=== PATIENT | female | born 1955 | race Caucasian/White ===

== ENCOUNTER → 2016-10-13 | Outpatient (CLI) | payer MEDICARE, MEDICAID ==
[~2016-10-13] MED LIST: CEFT500T; DECADRON; ISOVUE-370 76% 100ML VIAL (Q9967) As Ordered ONE; OMEP20TA7; POTA20TA2; PREV30TA; PROM12SU; ZOFR8TAB
--- NOTE | 2016-10-13 15:15 | REP ---
REASON: Hemoptysis. COMPARISON: Multiple, the latest 09/09/2013. Contrast utilized 100 mL Isovue 370. There is esophageal gastric distention. This is likely secondary to what is most likely gastric pull through procedure and unchanged from the prior exam. The mediastinum and pulmonary antonia are unchanged from the prior exam. There is no evidence of a mass or adenopathy. There are no pleural or pericardial effusions. The imaged upper abdomen is within normal limits and essentially unchanged. The imaged osseous structures appears stable and intact . Evaluation of the lung marshall show stable asymmetric densities without evidence of a new abnormal nodule, mass, or opacity. IMPRESSION: Stable CT chest with findings as described above. Signed by Vaughn Hazel DO 10/13/2016 05:02 P
== END ==
LOC: M RAD 12:51
PROVIDERS: ATTEND Otolaryngology
DX: R91.8 Other nonspecific abnormal finding of lung field (principal)
CPT/HCPCS: 71260; Q9967

== ENCOUNTER 2016-10-25 09:54 | Outpatient (RCR) | payer MEDICARE, MEDICAID ==
[~2016-10-25 09:54] MED LIST changes: -ISOVUE-370 76% 100ML VIAL (Q9967) As Ordered ONE
== END 2016-11-08 ==
LOC: M ST 09:54
PROVIDERS: ATTEND Otolaryngology
DX: Z51.89 Encounter for other specified aftercare (principal); Z43.0 Encounter for attention to tracheostomy; Z44.8 Encounter for fitting and adjustment of other external prosthetic devices
CPT/HCPCS: 92597; G9174; G9175; G9176

== ENCOUNTER 2016-12-21 10:26 | Outpatient (RCR) | payer MEDICARE, MEDICAID | END 2017-01-08 | LOC: M ST 10:26 | PROVIDERS: ATTEND Otolaryngology | DX: Z51.89 Encounter for other specified aftercare (principal); Z43.0 Encounter for attention to tracheostomy; Z44.8 Encounter for fitting and adjustment of other external prosthetic devices; C32.0 Malignant neoplasm of glottis | CPT/HCPCS: 92597; G9174; G9175; G9176 ==

== ENCOUNTER → 2017-06-19 | Outpatient (REF) | payer MEDICARE, MEDICAID ==
[2017-06-19 19:19] LABS: AMORPHOUS SEDIMENT MODERATE (NEGATIVE); APPEARANCE, URINE CLOUDY (CLEAR); BACTERIA, URINE AUTO NEGATIVE (NEGATIVE); BILIRUBIN, URINE AUTO NEGATIVE (NEGATIVE); BLOOD, URINE BLOOD NEGATIVE (NEGATIVE); COLOR, URINE YELLOW (YELLOW); GLUCOSE, URINE (UA) AUTO NEGATIVE (NEGATIVE); KETONE, URINE AUTO NEGATIVE (NEGATIVE); LEUKOCYTE ESTERASE, URINE AUTO NEGATIVE (NEGATIVE); NITRITE, URINE AUTO NEGATIVE (NEGATIVE); PROTEIN, URINE AUTO NEGATIVE (NEGATIVE); RBC, URINE AUTO 2 /HPF (0-3); SPECIFIC GRAVITY URINE AUTO 1.017 (1.002-1.035); SQUAMOUS EPITHELIAL CELL UR AU 1 /HPF (0-6); UROBILINOGEN, URINE AUTO 0.2 mg/dL (0.0-2.0); WBC, URINE AUTO 1 /HPF (0-3)
== END ==
LOC: M SMT 17:40
DX: N20.0 Calculus of kidney (principal)
CPT/HCPCS: 81001

== ENCOUNTER 2017-07-25 11:20 | Day surgery (SDC) | payer MEDICARE, MEDICAID ==
[2017-07-25] MEDS: NS 1,000 ML IV (11:45)
[2017-07-25] MEDS ORDERED: PROPOFOL 200 MG/20 ML VIAL As Ordered ×3 (13:14→13:15)
[2017-07-25] MEDS ORDERED: LIDOCAINE 2% INJ 100 MG/5 ML SDV (FOR ANES.) As Ordered (13:14)
== END 2017-07-25 14:12 | disposition home or self-care (01) ==
LOC: M OPP 11:20
DX: R10.31 Right lower quadrant pain (principal); C18.9 Malignant neoplasm of colon, unspecified; K57.30 Diverticulosis of large intestine without perforation or abscess without bleeding; R12 Heartburn; I10 Essential (primary) hypertension; R01.1 Cardiac murmur, unspecified; Z85.01 Personal history of malignant neoplasm of esophagus; Z85.43 Personal history of malignant neoplasm of ovary; Z85.828 Personal history of other malignant neoplasm of skin; Z92.21 Personal history of antineoplastic chemotherapy; Z92.3 Personal history of irradiation; K58.9 Irritable bowel syndrome, unspecified; K21.9 Gastro-esophageal reflux disease without esophagitis; Z87.442 Personal history of urinary calculi; F17.210 Nicotine dependence, cigarettes, uncomplicated; Z88.0 Allergy status to penicillin; Z88.2 Allergy status to sulfonamides; Z88.1 Allergy status to other antibiotic agents; Z88.8 Allergy status to other drugs, medicaments and biological substances; Z79.899 Other long term (current) drug therapy; Z79.82 Long term (current) use of aspirin; Z80.0 Family history of malignant neoplasm of digestive organs; Z80.3 Family history of malignant neoplasm of breast; Z80.41 Family history of malignant neoplasm of ovary
CPT/HCPCS: 45380

== ENCOUNTER 2017-08-20 13:14 | Inpatient (IN) | payer MEDICARE, MEDICAID ==
[2017-08-20] MEDS ORDERED: LIDOCAINE 1% SDV 5 ML VIAL SQ (13:30)
[2017-08-20] MEDS: HEPARIN SOD (PORCINE) 5000 UNITS/ML VIAL SC ×2 (14:00→22:13)
[2017-08-20] MEDS: LR 1,000 ML IV ×2 (14:18→19:30)
[2017-08-20] MEDS ORDERED: ERTAPENEM 1 GM INJ (INVanz) (J1335) As Ordered (14:33)
[2017-08-20] MEDS ORDERED: LIDOCAINE 2% INJ 100 MG/5 ML SDV (FOR ANES.) As Ordered (14:42)
[2017-08-20] MEDS ORDERED: PROPOFOL 200 MG/20 ML VIAL As Ordered (14:42)
[2017-08-20] MEDS ORDERED: ROCURONIUM BROMIDE 50 MG/5 ML VIAL As Ordered (14:42)
[2017-08-20 14:43] LABS: BEDSIDE GLUCOSE 94 MG/DL (80-115)
[2017-08-20] MEDS ORDERED: fentaNYL 250 MCG/5 ML INJECTION (J3010) As Ordered (14:43)
[2017-08-20] MEDS ORDERED: MIDAZOLAM INJ 2 MG/2 ML VIAL (J2250) As Ordered (14:43)
[2017-08-20] MEDS ORDERED: ERTAPENEM SODIUM 1 GM in NS MINI-BAG PLUS 50 ML IV (15:00)
[2017-08-20] MEDS ORDERED: NORCO, ANEXSIA 5/325MG TABLET (HYDROcodone/ACETAMINOPHEN) PO (15:15)
[2017-08-20] MEDS ORDERED: MORPHINE 4 MG/ML 1ML VIAL (J2270) IV (15:15)
[2017-08-20] MEDS ORDERED: ONDANSETRON 4MG/2ML VIAL (J2405) IV (15:15)
[2017-08-20] MEDS ORDERED: ACETAMINOPHEN TAB 650MG DOSE (2X325MG) PO (15:15)
[2017-08-20] MEDS: ERTAPENEM SODIUM 1 GM in NS 50 ML IV (15:43)
[2017-08-20] MEDS ORDERED: ePHEDrine SULFATE 25 MG/5 ML(5MG/ML) SYRINGE As Ordered (16:11)
[2017-08-20] MEDS ORDERED: PHENYLephrine HCL 500 MCG/5 ML (100MCG/ML) SYRINGE (J2370) As Ordered (16:11)
[2017-08-20] MEDS ORDERED: NEOSTIGMINE 10 MG/10 ML VIAL (J2710) As Ordered (16:36)
[2017-08-20] MEDS ORDERED: KETOROLAC 60 MG/2 ML VIAL (J1885) As Ordered (16:36)
[2017-08-20] MEDS ORDERED: GLYCOPYRROLATE INJ 0.2 MG/ML 2 ML VIAL As Ordered (16:36)
[2017-08-20] MEDS ORDERED: ONDANSETRON 4MG/2ML VIAL (J2405) As Ordered (16:37)
[2017-08-20] MEDS ORDERED: HYDROmorphone HCL 2 MG/ML 1ML VIAL (J1170) As Ordered (18:00)
[2017-08-20] MEDS: BUPIVACAINE/EPIN 0.5% 30 ML VIAL As Ordered (18:51)
[2017-08-20] MEDS ORDERED: METOCLOPRAMIDE INJ 10MG/2ML VIAL (J2765) As Ordered (19:09)
[2017-08-20] MEDS: METOCLOPRAMIDE INJ 10MG/2ML VIAL (J2765) IV (19:15)
[2017-08-20] MEDS ORDERED: PERCOCET 5MG/325MG TAB PO (19:30)
[2017-08-20] MEDS ORDERED: HYDROmorphone HCL 1 MG/ML SYRINGE (J1170) IV (19:30)
[2017-08-20] MEDS ORDERED: fentaNYL 100 MCG/2 ML INJECTION (J3010) IV (19:30)
[2017-08-20] MEDS: ONDANSETRON 4MG/2ML VIAL (J2405) IV (19:34)
[2017-08-20] MEDS ORDERED: PROMETHAZINE INJ 25 MG/ML VIAL (J2550) As Ordered (19:41)
[2017-08-20] MEDS: PROMETHAZINE INJ 25 MG/ML VIAL (J2550) IV (19:50)
[2017-08-20] MEDS: MULTIVITAMINS/MINERALS THERAP 1 TAB PO (20:23)
[2017-08-20] MEDS: KCL 20MEQ IN D5/0.45NS 1000ML 1,000 ML IV (20:34)
[2017-08-20] MEDS: PANTOPRAZOLE 40MG INJ (PROTONIX) (C9113) IV (20:34)
[2017-08-20] MEDS: SENOKOT S TAB PO (21:56)
[2017-08-20] MEDS: CALCITRIOL 0.25 MCG CAP (S0169) PO (21:56)
[2017-08-21] MEDS: KCL 20MEQ IN D5/0.45NS 1000ML 1,000 ML IV ×3 (04:38→16:05)
[2017-08-21 05:36] LABS: HEMATOCRIT 31.1 % (36.0-47.0); HEMOGLOBIN 10.9 g/dl (12.0-16.0); MEAN CORPUSCULAR HEMOGLOBIN 32.6 pg (27.0-33.0); MEAN CORPUSCULAR VOLUME 93.1 fl (80.0-96.0); PLATELET COUNT, AUTOMATED 205 10^3/uL (150-450); RED BLOOD COUNT 3.34 10^6/uL (4.00-5.40); RED CELL DISTRIBUTION WIDTH 12.4 % (11.5-14.5); WHITE BLOOD COUNT 9.1 10^3/uL (4.0-10.0)
[2017-08-21 06:09] LABS: ALBUMIN 2.7 GM/DL (3.2-5.2); ALBUMIN/GLOBULIN RATIO 0.87 (1.00-1.93); ALKALINE PHOSPHATASE 61 U/L (45-117); ALT/SGPT 10 U/L (12-78); ANION GAP 8 MEQ/L (8-16); AST/SGOT 19 U/L (7-37); BILIRUBIN,TOTAL 1.4 MG/DL (0.2-1.0); BLOOD UREA NITROGEN 13 MG/DL (7-18); CALCIUM LEVEL 6.6 MG/DL (8.8-10.2); CARBON DIOXIDE LEVEL 28 MEQ/L (21-32); CHLORIDE LEVEL 100 MEQ/L (98-107); CREATININE FOR GFR 0.93 MG/DL (0.55-1.30); GLOMERULAR FILTRATION RATE > 60.0 (>45); GLUCOSE, FASTING 135 MG/DL (70-100); MAGNESIUM LEVEL 1.3 MG/DL (1.8-2.4); POTASSIUM SERUM 3.5 MEQ/L (3.5-5.1); SODIUM LEVEL 136 MEQ/L (136-145); TOTAL PROTEIN 5.8 GM/DL (6.4-8.2)
[2017-08-21] MEDS: LEVOTHYROXINE 75MCG TABLET (0.075MG) PO (06:29)
[2017-08-21] MEDS: HEPARIN SOD (PORCINE) 5000 UNITS/ML VIAL SC ×3 (06:33→21:26)
[2017-08-21] MEDS: MAG SULF 1GM/100ML (MAG RUN) 1 GM in APPROPRIATE DILUENT 1 EA IV ×4 (08:16→11:30)
[2017-08-21] MEDS: MULTIVITAMINS/MINERALS THERAP 1 TAB PO (08:17)
[2017-08-21] MEDS: KETOROLAC 30 MG/ML VIAL (J1885) IV (08:17)
[2017-08-21] MEDS: CALCITRIOL 0.25 MCG CAP (S0169) PO ×2 (08:17→21:26)
[2017-08-21] MEDS: PANTOPRAZOLE 40MG INJ (PROTONIX) (C9113) IV (08:17)
[2017-08-21] MEDS: SENOKOT S TAB PO ×2 (08:17→21:26)
[2017-08-21] MEDS: CALCIUM/VITAMIN D 250 MG TABLET PO ×2 (10:25→21:26)
[2017-08-21] MEDS: ERTAPENEM SODIUM 1 GM in NS MINI-BAG PLUS 50 ML IV (16:05)
[2017-08-22] MEDS: KCL 20MEQ IN D5/0.45NS 1000ML 1,000 ML IV ×2 (00:25→06:48)
[2017-08-22] MEDS: LEVOTHYROXINE 75MCG TABLET (0.075MG) PO (06:12)
[2017-08-22] MEDS: HEPARIN SOD (PORCINE) 5000 UNITS/ML VIAL SC ×3 (06:12→20:32)
[2017-08-22 06:32] LABS: HEMATOCRIT 31.4 % (36.0-47.0); HEMOGLOBIN 10.9 g/dl (12.0-16.0); MEAN CORPUSCULAR HEMOGLOBIN 32.7 pg (27.0-33.0); MEAN CORPUSCULAR HGB CONC 34.7 g/dl (32.0-36.5); MEAN CORPUSCULAR VOLUME 94.3 fl (80.0-96.0); PLATELET COUNT, AUTOMATED 202 10^3/uL (150-450); RED BLOOD COUNT 3.33 10^6/uL (4.00-5.40); RED CELL DISTRIBUTION WIDTH 12.9 % (11.5-14.5); WHITE BLOOD COUNT 6.9 10^3/uL (4.0-10.0)
[2017-08-22] MEDS: LISINOPRIL *2.5 MG* TAB PO (06:47)
[2017-08-22 07:01] LABS: ALBUMIN 2.9 GM/DL (3.2-5.2); ALBUMIN/GLOBULIN RATIO 0.85 (1.00-1.93); ALKALINE PHOSPHATASE 63 U/L (45-117); ALT/SGPT 8 U/L (12-78); ANION GAP 9 MEQ/L (8-16); AST/SGOT 16 U/L (7-37); BILIRUBIN,TOTAL 1.1 MG/DL (0.2-1.0); BLOOD UREA NITROGEN 8 MG/DL (7-18); CALCIUM LEVEL 6.6 MG/DL (8.8-10.2); CARBON DIOXIDE LEVEL 26 MEQ/L (21-32); CHLORIDE LEVEL 104 MEQ/L (98-107); CREATININE FOR GFR 0.81 MG/DL (0.55-1.30); GLOMERULAR FILTRATION RATE > 60.0 (>45); GLUCOSE, FASTING 122 MG/DL (70-100); MAGNESIUM LEVEL 1.9 MG/DL (1.8-2.4); POTASSIUM SERUM 3.3 MEQ/L (3.5-5.1); SODIUM LEVEL 139 MEQ/L (136-145); TOTAL PROTEIN 6.3 GM/DL (6.4-8.2)
[2017-08-22] MEDS: PANTOPRAZOLE 40MG INJ (PROTONIX) (C9113) IV (08:17)
[2017-08-22] MEDS: SENOKOT S TAB PO ×2 (08:17→20:31)
[2017-08-22] MEDS: POTASSIUM CHLORIDE 10 MEQ SR TABLET PO (08:17)
[2017-08-22] MEDS: MULTIVITAMINS/MINERALS THERAP 1 TAB PO (08:17)
[2017-08-22] MEDS: CALCIUM/VITAMIN D 250 MG TABLET PO ×2 (08:17→20:32)
[2017-08-22] MEDS: CALCITRIOL 0.25 MCG CAP (S0169) PO ×2 (08:17→20:31)
[2017-08-23] MEDS: LEVOTHYROXINE 75MCG TABLET (0.075MG) PO (06:07)
[2017-08-23] MEDS: HEPARIN SOD (PORCINE) 5000 UNITS/ML VIAL SC ×3 (06:08→21:28)
[2017-08-23 06:30] LABS: HEMATOCRIT 33.5 % (36.0-47.0); HEMOGLOBIN 11.4 g/dl (12.0-16.0); MEAN CORPUSCULAR HEMOGLOBIN 32.2 pg (27.0-33.0); MEAN CORPUSCULAR VOLUME 94.6 fl (80.0-96.0); PLATELET COUNT, AUTOMATED 222 10^3/uL (150-450); RED BLOOD COUNT 3.54 10^6/uL (4.00-5.40); RED CELL DISTRIBUTION WIDTH 12.9 % (11.5-14.5); WHITE BLOOD COUNT 5.7 10^3/uL (4.0-10.0)
[2017-08-23 06:52] LABS: ALBUMIN 2.9 GM/DL (3.2-5.2); ALBUMIN/GLOBULIN RATIO 0.74 (1.00-1.93); ALKALINE PHOSPHATASE 65 U/L (45-117); ALT/SGPT 9 U/L (12-78); ANION GAP 8 MEQ/L (8-16); AST/SGOT 13 U/L (7-37); BILIRUBIN,TOTAL 1.5 MG/DL (0.2-1.0); BLOOD UREA NITROGEN 11 MG/DL (7-18); CALCIUM LEVEL 7.4 MG/DL (8.8-10.2); CARBON DIOXIDE LEVEL 26 MEQ/L (21-32); CHLORIDE LEVEL 104 MEQ/L (98-107); CREATININE FOR GFR 0.96 MG/DL (0.55-1.30); GLOMERULAR FILTRATION RATE > 60.0 (>45); GLUCOSE, FASTING 86 MG/DL (70-100); MAGNESIUM LEVEL 1.9 MG/DL (1.8-2.4); SODIUM LEVEL 138 MEQ/L (136-145); TOTAL PROTEIN 6.8 GM/DL (6.4-8.2)
[2017-08-23] MEDS: SENOKOT S TAB PO ×2 (09:02→21:28)
[2017-08-23] MEDS: CALCIUM/VITAMIN D 250 MG TABLET PO ×2 (09:02→21:28)
[2017-08-23] MEDS: MULTIVITAMINS/MINERALS THERAP 1 TAB PO (09:02)
[2017-08-23] MEDS: PANTOPRAZOLE 40MG INJ (PROTONIX) (C9113) IV (09:02)
[2017-08-23] MEDS: CALCITRIOL 0.25 MCG CAP (S0169) PO ×2 (09:02→21:28)
[2017-08-23] MEDS: LISINOPRIL *2.5 MG* TAB PO (09:05)
[2017-08-23 11:47] LABS: BEDSIDE GLUCOSE 109 MG/DL (80-115)
[2017-08-23 17:14] LABS: BEDSIDE GLUCOSE 108 MG/DL (80-115)
[2017-08-24] MEDS: HEPARIN SOD (PORCINE) 5000 UNITS/ML VIAL SC ×3 (05:35→21:02)
[2017-08-24] MEDS: LEVOTHYROXINE 75MCG TABLET (0.075MG) PO (05:35)
[2017-08-24 05:52] LABS: HEMATOCRIT 32.2 % (36.0-47.0); HEMOGLOBIN 11.3 g/dl (12.0-16.0); MEAN CORPUSCULAR HEMOGLOBIN 32.8 pg (27.0-33.0); MEAN CORPUSCULAR HGB CONC 35.1 g/dl (32.0-36.5); MEAN CORPUSCULAR VOLUME 93.6 fl (80.0-96.0); PLATELET COUNT, AUTOMATED 230 10^3/uL (150-450); RED BLOOD COUNT 3.44 10^6/uL (4.00-5.40); RED CELL DISTRIBUTION WIDTH 12.7 % (11.5-14.5); WHITE BLOOD COUNT 4.8 10^3/uL (4.0-10.0)
[2017-08-24 06:39] LABS: ALBUMIN/GLOBULIN RATIO 0.97 (1.00-1.93); ALKALINE PHOSPHATASE 65 U/L (45-117); ALT/SGPT 6 U/L (12-78); ANION GAP 10 MEQ/L (8-16); AST/SGOT 15 U/L (7-37); BILIRUBIN,TOTAL 1.3 MG/DL (0.2-1.0); BLOOD UREA NITROGEN 14 MG/DL (7-18); CALCIUM LEVEL 7.7 MG/DL (8.8-10.2); CARBON DIOXIDE LEVEL 26 MEQ/L (21-32); CHLORIDE LEVEL 105 MEQ/L (98-107); CREATININE FOR GFR 0.94 MG/DL (0.55-1.30); GLOMERULAR FILTRATION RATE > 60.0 (>45); GLUCOSE, FASTING 85 MG/DL (70-100); MAGNESIUM LEVEL 1.7 MG/DL (1.8-2.4); POTASSIUM SERUM 3.8 MEQ/L (3.5-5.1); SODIUM LEVEL 141 MEQ/L (136-145); TOTAL PROTEIN 6.1 GM/DL (6.4-8.2)
[2017-08-24] MEDS: CALCITRIOL 0.25 MCG CAP (S0169) PO ×2 (09:20→21:02)
[2017-08-24] MEDS: SENOKOT S TAB PO ×2 (09:20→21:02)
[2017-08-24] MEDS: CALCIUM/VITAMIN D 250 MG TABLET PO ×2 (09:20→21:02)
[2017-08-24] MEDS: MULTIVITAMINS/MINERALS THERAP 1 TAB PO (09:20)
[2017-08-24] MEDS: PANTOPRAZOLE 40MG INJ (PROTONIX) (C9113) IV (09:21)
[2017-08-24] MEDS: MAG SULF 1GM/100ML (MAG RUN) 1 GM in APPROPRIATE DILUENT 1 EA IV (09:21)
[2017-08-24] MEDS: LISINOPRIL *2.5 MG* TAB PO (09:21)
[2017-08-25] MEDS: HEPARIN SOD (PORCINE) 5000 UNITS/ML VIAL SC (05:33)
[2017-08-25] MEDS: LEVOTHYROXINE 75MCG TABLET (0.075MG) PO (05:33)
[2017-08-25 05:41] LABS: HEMATOCRIT 32.1 % (36.0-47.0); HEMOGLOBIN 11.2 g/dl (12.0-16.0); MEAN CORPUSCULAR HEMOGLOBIN 32.5 pg (27.0-33.0); MEAN CORPUSCULAR HGB CONC 34.9 g/dl (32.0-36.5); PLATELET COUNT, AUTOMATED 254 10^3/uL (150-450); RED BLOOD COUNT 3.45 10^6/uL (4.00-5.40); RED CELL DISTRIBUTION WIDTH 12.9 % (11.5-14.5); WHITE BLOOD COUNT 4.1 10^3/uL (4.0-10.0)
[2017-08-25 06:13] LABS: ALBUMIN 2.9 GM/DL (3.2-5.2); ALBUMIN/GLOBULIN RATIO 0.78 (1.00-1.93); ALKALINE PHOSPHATASE 59 U/L (45-117); ALT/SGPT 9 U/L (12-78); ANION GAP 11 MEQ/L (8-16); AST/SGOT 16 U/L (7-37); BLOOD UREA NITROGEN 15 MG/DL (7-18); CALCIUM LEVEL 8.5 MG/DL (8.8-10.2); CARBON DIOXIDE LEVEL 27 MEQ/L (21-32); CHLORIDE LEVEL 102 MEQ/L (98-107); CREATININE FOR GFR 0.94 MG/DL (0.55-1.30); GLOMERULAR FILTRATION RATE > 60.0 (>45); GLUCOSE, FASTING 92 MG/DL (70-100); MAGNESIUM LEVEL 1.8 MG/DL (1.8-2.4); POTASSIUM SERUM 3.7 MEQ/L (3.5-5.1); SODIUM LEVEL 140 MEQ/L (136-145); TOTAL PROTEIN 6.6 GM/DL (6.4-8.2)
[2017-08-25] MEDS: MULTIVITAMINS/MINERALS THERAP 1 TAB PO (08:03)
[2017-08-25] MEDS: CALCIUM/VITAMIN D 250 MG TABLET PO (08:04)
[2017-08-25] MEDS: LISINOPRIL *2.5 MG* TAB PO (08:04)
[2017-08-25] MEDS: PANTOPRAZOLE 40MG INJ (PROTONIX) (C9113) IV (08:04)
[2017-08-25] MEDS: CALCITRIOL 0.25 MCG CAP (S0169) PO (08:04)
[2017-08-25] MEDS: SENOKOT S TAB PO (08:04)
== END 2017-08-25 13:50 | disposition home or self-care (01) | DRG 331 ==
LOC: M OR 13:14 → M MSPAV 20:10
PROVIDERS: Surgery
PROC: 0DBL0ZZ Excision of Transverse Colon, Open Approach (ICD-10-PCS; principal; 2017-08-20 15:00)
PROC: 0DNL4ZZ Release Transverse Colon, Percutaneous Endoscopic Approach (ICD-10-PCS; 2017-08-20 15:00)
DX: C18.4 Malignant neoplasm of transverse colon (principal); Z93.0 Tracheostomy status; E11.9 Type 2 diabetes mellitus without complications; Z79.899 Other long term (current) drug therapy; K21.9 Gastro-esophageal reflux disease without esophagitis; Z85.01 Personal history of malignant neoplasm of esophagus; J45.40 Moderate persistent asthma, uncomplicated; Z53.31 Laparoscopic surgical procedure converted to open procedure

== ENCOUNTER → 2017-09-21 | Outpatient (REF) | payer MEDICARE, MEDICAID, OTHER ==
[2017-09-21 14:13] LABS: CARCINOEMBRYONIC ANTIGEN < 0.5 NG/ML (<2.5)
== END ==
LOC: M LAB REF 13:20
DX: Z85.01 Personal history of malignant neoplasm of esophagus (principal); C18.4 Malignant neoplasm of transverse colon
CPT/HCPCS: 82378

== ENCOUNTER → 2017-11-30 | Outpatient (CLI) | payer MEDICARE, MEDICAID ==
[~2017-11-30] MED LIST changes: -CEFT500T; -DECADRON; +ISOVUE-370 76% 100ML VIAL (Q9967) As Ordered; -OMEP20TA7; -POTA20TA2; -PREV30TA; -PROM12SU; -ZOFR8TAB
== END ==
LOC: M RAD 10:12
DX: N13.30 Unspecified hydronephrosis (principal); N28.9 Disorder of kidney and ureter, unspecified; K44.9 Diaphragmatic hernia without obstruction or gangrene; N20.0 Calculus of kidney; K80.00 Calculus of gallbladder with acute cholecystitis without obstruction
CPT/HCPCS: Q9967

== ENCOUNTER → 2018-03-14 | Outpatient (CLI) | payer MEDICARE, MEDICAID | LOC: M SMT 11:26 | DX: N20.0 Calculus of kidney (principal) | CPT/HCPCS: 74018; G0463 ==

== ENCOUNTER 2018-04-04 08:32 | Day surgery (SDC) | payer MEDICARE, MEDICAID ==
[2018-04-04] MEDS ORDERED: CIPROFLOXACIN/D5W 400 MG/200 ML BAG (J0744) As Ordered (10:40)
[2018-04-04] MEDS: CIPROFLOXACIN 400 MG in APPROPRIATE DILUENT 1 EA IV (12:50)
[2018-04-04] MEDS ORDERED: MIDAZOLAM INJ 2 MG/2 ML VIAL (J2250) As Ordered (13:01)
[2018-04-04] MEDS ORDERED: ONDANSETRON 4MG/2ML VIAL (J2405) As Ordered (13:01)
[2018-04-04] MEDS ORDERED: PROPOFOL 200 MG/20 ML VIAL As Ordered (13:01)
[2018-04-04] MEDS ORDERED: fentaNYL 100 MCG/2 ML INJECTION (J3010) As Ordered (13:01)
[2018-04-04] MEDS ORDERED: dexameTHASONE 4 MG/ML 1ML VIAL (J1100) As Ordered (13:01)
[2018-04-04] MEDS ORDERED: LIDOCAINE 2% INJ 100 MG/5 ML SDV (FOR ANES.) As Ordered (13:01)
== END 2018-04-04 15:30 | disposition home or self-care (01) ==
LOC: M SDC 08:32
DX: N20.0 Calculus of kidney (principal); I10 Essential (primary) hypertension; K21.9 Gastro-esophageal reflux disease without esophagitis; K44.9 Diaphragmatic hernia without obstruction or gangrene; Z79.899 Other long term (current) drug therapy; Z88.2 Allergy status to sulfonamides; Z88.0 Allergy status to penicillin; Z85.43 Personal history of malignant neoplasm of ovary
CPT/HCPCS: 50590

== ENCOUNTER 2018-09-25 07:30 | Day surgery (SDC) | payer MEDICARE, MEDICAID ==
[~2018-09-25] VITALS: Ht 166.4 cm; Wt 53.5 kg
[~2018-09-25 07:30] MED LIST changes: +Acetaminophen Tab PO; +CALC1CAP31 PO; +CALC1TAB26 PO; +CALCTAB29 PO; +CEFT500T; +DECADRON; -ISOVUE-370 76% 100ML VIAL (Q9967) As Ordered; +LEVO75TA4 PO; +LIDOCAINE 2% INJ 100 MG/5 ML SDV (FOR ANES.) As Ordered ONE; +LISI-1046 PO; +LISI-542 PO; +MULT1TAB10 PO; +MULTCAP PO; +NS 1,000 ML IV ONE; +OMEP20TA7; +OMEP40CA2 PO; +ONDA-227; +POTA20TA2; +PREV30TA; +PROM12SU; +PROPOFOL 200 MG/20 ML VIAL As Ordered ONE; +RANI1TAB38 PO
[2018-09-25] MEDS ORDERED: fentaNYL 100 MCG/2 ML INJECTION (J3010) As Ordered ONE (08:23)
--- NOTE | 2018-09-25 09:09 | ROOR ---
Patient Name: Alaina Bassett Procedure Date: 09/25/2018 8:32 AM Date of : 1955 Age: 62 Room: [facility] Gender: Female Note Status: Finalized Procedure: Upper GI endoscopy Indications: Heartburn Providers: DO Agustin Yee MD: LEVI MOSHER MD Requesting Provider: Medicines: Propofol per Anesthesia Complications: No immediate complications. Procedure: Pre-Anesthesia Assessment: - Prior to the procedure, a History and Physical was performed, and patient medications and allergies were reviewed. The patient is competent. The risks and benefits of the procedure and the sedation options and risks were discussed with the patient. All questions were answered and informed consent was obtained. Patient identification and proposed procedure were verified by the physician, the nurse, the anesthesiologist and the software test technician in the endoscopy suite. Mental Status Examination: alert and oriented. Airway Examination: normal oropharyngeal airway and neck mobility. Respiratory Examination: clear to auscultation. CV Examination: normal. Prophylactic Antibiotics: The patient does not require prophylactic antibiotics. Prior Anticoagulants: The patient has taken no previous anticoagulant or antiplatelet agents. ASA Grade Assessment: II - A patient with mild systemic disease. After reviewing the risks and benefits, the patient was deemed in satisfactory condition to undergo the procedure. The anesthesia plan was to use monitored anesthesia care (MAC). Immediately prior to administration of medications, the patient was re-assessed for adequacy to receive sedatives. The heart rate, respiratory rate, oxygen saturations, blood pressure, adequacy of pulmonary ventilation, and response to care were monitored throughout the procedure. The physical status of the patient was re-assessed after the procedure. The Endoscope was introduced through the mouth, and advanced to the afferent jejunal loop. The upper GI endoscopy was accomplished without difficulty. The patient tolerated the procedure well. Findings: Mild inflammation characterized by congestion (edema) and erythema was found at the gastroesophageal junction. Estimated blood loss: none. Impression: - Gastritis. - No specimens collected. Recommendation: - Patient has a contact number available for emergencies. The signs and symptoms of potential delayed complications were discussed with the patient. Return to normal activities tomorrow. Written discharge instructions were provided to the patient. - Return to my office PRN. Jozef Begum DO 09/25/2018 9:08:57 AM Electronically signed by Jozef Begum DO Number of Addenda: 0 Note Initiated On: 09/25/2018 8:32 AM Estimated Blood Loss: Estimated blood loss: none.
--- NOTE | 2018-09-25 09:10 | ROOR ---
Patient Name: Alaina Bassett Procedure Date: 09/25/2018 8:33 AM Date of : 1955 Age: 62 Room: [facility] Gender: Female Note Status: Finalized Procedure: Colonoscopy Indications: High risk colon cancer surveillance: Personal history of colon cancer Providers: DO Agustin Yee MD: LEVI MOSHER MD Requesting Provider: Medicines: Propofol per Anesthesia Complications: No immediate complications. Procedure: Pre-Anesthesia Assessment: - Prior to the procedure, a History and Physical was performed, and patient medications and allergies were reviewed. The patient is competent. The risks and benefits of the procedure and the sedation options and risks were discussed with the patient. All questions were answered and informed consent was obtained. Patient identification and proposed procedure were verified by the physician, the nurse, the anesthesiologist and the cardiopulmonary technician in the endoscopy suite. Mental Status Examination: alert and oriented. Airway Examination: normal oropharyngeal airway and neck mobility. Respiratory Examination: clear to auscultation. CV Examination: normal. Prophylactic Antibiotics: The patient does not require prophylactic antibiotics. Prior Anticoagulants: The patient has taken no previous anticoagulant or antiplatelet agents. ASA Grade Assessment: II - A patient with mild systemic disease. After reviewing the risks and benefits, the patient was deemed in satisfactory condition to undergo the procedure. The anesthesia plan was to use monitored anesthesia care (MAC). Immediately prior to administration of medications, the patient was re-assessed for adequacy to receive sedatives. The heart rate, respiratory rate, oxygen saturations, blood pressure, adequacy of pulmonary ventilation, and response to care were monitored throughout the procedure. The physical status of the patient was re-assessed after the procedure. The Colonoscope was introduced through the anus and advanced to the cecum, identified by appendiceal orifice and ileocecal valve. The colonoscopy was performed without difficulty. The patient tolerated the procedure well. Findings: Many small-mouthed diverticula were found in the sigmoid colon. The exam was otherwise without abnormality on direct and retroflexion views. Impression: - Diverticulosis in the sigmoid colon. - The examination was otherwise normal on direct and retroflexion views. - No specimens collected. Recommendation: - Patient has a contact number available for emergencies. The signs and symptoms of potential delayed complications were discussed with the patient. Return to normal activities tomorrow. Written discharge instructions were provided to the patient. - Repeat colonoscopy in 3 years for surveillance. - Return to my office in 3 years. Jozef Begum DO 09/25/2018 9:10:34 AM Electronically signed by Jozef Beugm DO Number of Addenda: 0 Note Initiated On: 09/25/2018 8:33 AM Estimated Blood Loss: Estimated blood loss: none.
[2018-09-25 09:27] VITALS: BP 108/76
== END 2018-09-25 09:44 | disposition home or self-care (01) ==
LOC: M OPP 07:30
PROVIDERS: ATTEND Surgery
DX: K57.30 Diverticulosis of large intestine without perforation or abscess without bleeding (principal); K29.70 Gastritis, unspecified, without bleeding; R12 Heartburn; Z85.038 Personal history of other malignant neoplasm of large intestine
CPT/HCPCS: 43235; G0105; J3010

== ENCOUNTER → 2018-12-02 | Outpatient (CLI) | payer MEDICARE, MEDICAID ==
[~2018-12-02] MED LIST changes: -LIDOCAINE 2% INJ 100 MG/5 ML SDV (FOR ANES.) As Ordered ONE; -NS 1,000 ML IV ONE; -PROPOFOL 200 MG/20 ML VIAL As Ordered ONE
--- NOTE | 2018-12-05 14:51 | DEXA ---
AP SPINE L1 - L4 1.060 -1.1 0.3 LT FEMUR TOTAL 0.745 -2.1 -1.0 LT NECK 0.672 -2.6 -1.3 RT FEMUR TOTAL 0.727 -2.2 -1.1 RT NECK 0.661 -2.7 -1.3 TOTAL BODY TOTAL OTHER COMMENTS: There is low bone density of the spine. There is osteoporosis of the hips. The density of the spine has decreased 19.5% since the initial exam on 05/25/2000. The spine density has increased 3.8% since the most recent exam on 03/23/2016. The density of the left hip has decreased 23.0% since the initial exam on 05/25/2000. The density of the left hip has increased 2.1% since the most recent exam on 03/23/2016. The density of the right hip has decreased 25.3% since the initial exam on 05/25/2000. The density of the right hip has decreased 2.4% since the most recent exam on 03/23/2016. FOLLOW-UP: Recommendation for the next bone density exam: 2 years. LOUIE
== END ==
LOC: M WHC 08:16
PROVIDERS: ATTEND Internal Medicine Endocrinology, Diabetes & Metabolism
DX: M81.0 Age-related osteoporosis without current pathological fracture (principal); E83.51 Hypocalcemia; E03.9 Hypothyroidism, unspecified

== ENCOUNTER → 2019-11-17 | Outpatient (CLI) | payer MEDICARE, MEDICAID ==
[~2019-11-17] MED LIST changes: -LISI-1046 PO; +LISI2.5T2 PO; -OMEP40CA2 PO; +OMEP40CA97 PO
--- NOTE | 2019-11-17 14:12 | REPMRS ---
Patient History The patient states she has not had a clinical breast exam in over a year. Patient is postmenopausal, has history of endometrial cancer at age 40, has history of colorectal cancer, and has history of other cancer. Family history of breast cancer in mother, unknown cancer in father, unknown cancer in brother. 3D TOMOSYNTHESIS WAS PERFORMED. The [facility] lifetime risk for breast cancer is 7.8%. [facility] Guy. Digital Woman Screen Mammo: November 17, 2019 - Exam #: [id number] Bilateral CC and MLO view(s) were taken. Technologist: Alyson Fontenot, Technologist FINDINGS: The breast tissue is heterogeneously dense. This may lower the sensitivity of mammography. There has been no change in the appearance of the mammogram from the prior studies. There is a moderate amount of residual fibroglandular tissue which is fairly symmetric. There is no interval development of dominant mass, areas of architectural distortion, or clustered microcalcification typical of malignancy. Assessment: BI-RADS/ACR category 1 mammogram. Negative Mammogram. Recommendation Routine screening mammogram in 1 year (for women over age 40). This mammogram was interpreted with the aid of an FDA-approved computer-aided dectection system. Electronically Signed By: Jozef Cruz MD 11/17/19 1043
== END ==
LOC: M WHC 09:56
PROVIDERS: ATTEND Family Medicine
DX: Z12.31 Encounter for screening mammogram for malignant neoplasm of breast (principal); Z80.3 Family history of malignant neoplasm of breast; Z85.59 Personal history of malignant neoplasm of other urinary tract organ; Z85.038 Personal history of other malignant neoplasm of large intestine

== ENCOUNTER 2020-10-20 06:45 | Day surgery (SDC) | payer MEDICARE, MEDICAID ==
[~2020-10-20] VITALS: Ht 165.1 cm; Wt 54.4 kg
[~2020-10-20 06:45] MED LIST changes: -LISI-542 PO; +LISI-898 PO; +NS 1,000 ML IV ONE; +VITMTA PO
[2020-10-20] MEDS ORDERED: propofoL 500 MG/50 ML VIAL As Ordered ONE (07:09)
[2020-10-20] MEDS ORDERED: LIDOCAINE 2% 100MG/5ML SDV (FOR ANES.) As Ordered ONE (07:09)
[2020-10-20] MEDS ORDERED: ePHEDrine SULFATE 25 MG/5 ML(5MG/ML) SYRINGE As Ordered ONE (07:52)
--- NOTE | 2020-10-20 08:16 | ROOR ---
Patient Name: Alaina Bassett Procedure Date: 10/20/2020 7:31 AM Date of : 1955 Age: 64 Room: [facility] Gender: Female Note Status: Finalized Procedure: Upper GI endoscopy Indications: Surveillance for malignancy due to personal history of esophageal cancer Providers: DO Agustin Yee MD: Nadir Lees MD Requesting Provider: Medicines: Propofol per Anesthesia Complications: No immediate complications. Procedure: Pre-Anesthesia Assessment: - Prior to the procedure, a History and Physical was performed, and patient medications and allergies were reviewed. The patient is competent. The risks and benefits of the procedure and the sedation options and risks were discussed with the patient. All questions were answered and informed consent was obtained. Patient identification and proposed procedure were verified by the physician, the nurse, the power washer and the facility maintenance technician in the endoscopy suite. Mental Status Examination: alert and oriented. Airway Examination: normal oropharyngeal airway and neck mobility. Respiratory Examination: clear to auscultation. CV Examination: normal. Prophylactic Antibiotics: The patient does not require prophylactic antibiotics. Prior Anticoagulants: The patient has taken no previous anticoagulant or antiplatelet agents. ASA Grade Assessment: II - A patient with mild systemic disease. After reviewing the risks and benefits, the patient was deemed in satisfactory condition to undergo the procedure. The anesthesia plan was to use monitored anesthesia care (MAC). Immediately prior to administration of medications, the patient was re-assessed for adequacy to receive sedatives. The heart rate, respiratory rate, oxygen saturations, blood pressure, adequacy of pulmonary ventilation, and response to care were monitored throughout the procedure. The physical status of the patient was re-assessed after the procedure. The Endoscope was introduced through the mouth, and advanced to the prepyloric region, stomach. The upper GI endoscopy was accomplished without difficulty. The patient tolerated the procedure well. Findings: The esophagus was normal. The stomach was normal. The examined duodenum was normal. Impression: - Normal esophagus. - Normal stomach. - Normal examined duodenum. - No specimens collected. Recommendation: - Patient has a contact number available for emergencies. The signs and symptoms of potential delayed complications were discussed with the patient. Return to normal activities tomorrow. Written discharge instructions were provided to the patient. - Return to my office PRN. Procedure Code(s): --- Professional --- 52082, 52, Esophagogastroduodenoscopy, flexible, transoral; diagnostic, including collection of specimen(s) by brushing or washing, when performed (separate procedure) Diagnosis Code(s): --- Professional --- Z85.01, Personal history of malignant neoplasm of esophagus CPT copyright 2019 [employer]. All rights reserved. The codes documented in this report are preliminary and upon prefitter review may be revised to meet current compliance requirements. Jozef Begum DO 10/20/2020 8:16:06 AM Electronically signed by Jozef Begum DO Number of Addenda: 0 Note Initiated On: 10/20/2020 7:31 AM Estimated Blood Loss: Estimated blood loss: none.
--- NOTE | 2020-10-20 08:20 | ROOR ---
Patient Name: Alaina Bassett Procedure Date: 10/20/2020 7:31 AM Date of : 1955 Age: 64 Room: [facility] Gender: Female Note Status: Finalized Procedure: Colonoscopy Indications: High risk colon cancer surveillance: Personal history of colon cancer Providers: DO Agustin Yee MD: Nadir Lees MD Requesting Provider: Medicines: Propofol per Anesthesia Complications: No immediate complications. Procedure: Pre-Anesthesia Assessment: - Prior to the procedure, a History and Physical was performed, and patient medications and allergies were reviewed. The patient is competent. The risks and benefits of the procedure and the sedation options and risks were discussed with the patient. All questions were answered and informed consent was obtained. Patient identification and proposed procedure were verified by the physician, the nurse, the solid waste collection worker and the dialysis equipment technician in the endoscopy suite. Mental Status Examination: alert and oriented. Airway Examination: normal oropharyngeal airway and neck mobility. Respiratory Examination: clear to auscultation. CV Examination: normal. Prophylactic Antibiotics: The patient does not require prophylactic antibiotics. Prior Anticoagulants: The patient has taken no previous anticoagulant or antiplatelet agents. ASA Grade Assessment: II - A patient with mild systemic disease. After reviewing the risks and benefits, the patient was deemed in satisfactory condition to undergo the procedure. The anesthesia plan was to use monitored anesthesia care (MAC). Immediately prior to administration of medications, the patient was re-assessed for adequacy to receive sedatives. The heart rate, respiratory rate, oxygen saturations, blood pressure, adequacy of pulmonary ventilation, and response to care were monitored throughout the procedure. The physical status of the patient was re-assessed after the procedure. The Colonoscope was introduced through the anus and advanced to the cecum, identified by appendiceal orifice and ileocecal valve. The colonoscopy was performed without difficulty. The patient tolerated the procedure well. Findings: Non-bleeding internal hemorrhoids were found during retroflexion. The hemorrhoids were severe and Grade II (internal hemorrhoids that prolapse but reduce spontaneously). Two hyperplastic polyps were found in the sigmoid colon. The polyps were less than 5 mm in size. These polyps were removed with a jumbo cold forceps. Resection and retrieval were complete. Estimated blood loss was minimal. Impression: - Non-bleeding internal hemorrhoids. - Two less than 5 mm polyps in the sigmoid colon, removed with a jumbo cold forceps. Resected and retrieved. Recommendation: - Patient has a contact number available for emergencies. The signs and symptoms of potential delayed complications were discussed with the patient. Return to normal activities tomorrow. Written discharge instructions were provided to the patient. - Repeat colonoscopy in 3 - 5 years for surveillance based on pathology results. - Return to my office at appointment to be scheduled. - Await pathology results. Procedure Code(s): --- Professional --- 49510, Colonoscopy, flexible; with biopsy, single or multiple Diagnosis Code(s): --- Professional --- Z85.038, Personal history of other malignant neoplasm of large intestine K64.1, Second degree hemorrhoids K63.5, Polyp of colon CPT copyright 2019 [employer]. All rights reserved. The codes documented in this report are preliminary and upon e mail system administrator review may be revised to meet current compliance requirements. Jozef Begum DO 10/20/2020 8:19:44 AM Electronically signed by Jozef Begum DO Number of Addenda: 0 Note Initiated On: 10/20/2020 7:31 AM Estimated Blood Loss: Estimated blood loss was minimal.
[2020-10-20 08:35] VITALS: BP 136/86
== END 2020-10-20 08:50 | disposition home or self-care (01) ==
LOC: M OPP 06:45
PROVIDERS: ATTEND Surgery
DX: Z12.11 Encounter for screening for malignant neoplasm of colon (principal); Z85.038 Personal history of other malignant neoplasm of large intestine; K63.5 Polyp of colon; K64.1 Second degree hemorrhoids; Z85.01 Personal history of malignant neoplasm of esophagus; K21.9 Gastro-esophageal reflux disease without esophagitis; E11.9 Type 2 diabetes mellitus without complications; Z79.899 Other long term (current) drug therapy; Z88.0 Allergy status to penicillin; Z88.1 Allergy status to other antibiotic agents; Z88.8 Allergy status to other drugs, medicaments and biological substances

== ENCOUNTER → 2020-12-21 | Outpatient (CLI) | payer MEDICARE, MEDICAID ==
[~2020-12-21] MED LIST changes: -NS 1,000 ML IV ONE; +OMEP40CA4 PO; -OMEP40CA97 PO
--- NOTE | 2020-12-21 10:54 | REPMRS ---
Patient History The patient states she had a clinical breast exam in November 2020. Family history of breast cancer in mother, unknown cancer in father, unknown cancer in brother. Patient states no breast complaints today. Patient has signed MRS History Sheet. Digital Woman Screen Mammo: December 21, 2020 - Exam #: [id number] Bilateral CC and MLO view(s) were taken. Technologist: RT Andrea Prior study comparison: November 17, 2019, bilateral digital woman screen mammo performed at [facility]. FINDINGS: The breast tissue is heterogeneously dense. This may lower the sensitivity of mammography. Screening. Digital screening (2D) mammography was performed bilaterally in the CC and MLO projections. Additionally, breast tomosynthesis (3D mammography) was performed bilaterally in the CC and MLO projections. Todays exam was compared to the prior exam/exams. By history, the patient has no complaints of a palpable breast abnormality or other significant breast complaints. The breasts are unchanged in size and shape.Once again, dense heterogenous fibroglandular elements are seen bilaterally in a stable appearing pattern but to such a degree that the sensitivity of the mammogram in detecting cancer is decreased. There are no attila-soft tissue densities or spiculated masses. There is no internal architectural distortion.Once again, stable benign appearing calcifications are seen. There are no suspicious attila-calcific clusters. Skin thickening or nipple retraction is not present. IMPRESSION: BI-RADS Category 2- Benign Findings. There is no evidence of malignant alteration of the breasts. Followup examination recommended in one year. The Volpara volumetric breast density category is C, the breasts are heterogenously dense which may obscure small masses. This mammogram was read with the assistance of [employer],an FDA approved computer aided detection system for mammography. The lifetime Tyrer-Cuzick score is 7.5 % Due to the density of the breasts or Tyrer Cuzick score of 20% or greater, MRI/whole breast screening ultrasound is warranted. Negative x-ray reports should not delay surgical consultation if a dominant or clinically suspicious mass is present. Not all breast cancers can be identified by mammography. Therefore, we recommend that you continue to perform regular breast self-examination and physical examination and then promptly contact your physician of any concerns or changes. Adenosis and dense breasts may obscure an underlying neoplasm. Assessment: BI-RADS/ACR category 2 mammogram. Benign Findings. Recommendation Routine screening mammogram of both breasts in 1 year. Electronically Signed By: Vaughn Hazel DO 12/21/20 [id number]
== END ==
LOC: M WHC 08:58
PROVIDERS: ATTEND Family Medicine
DX: Z12.31 Encounter for screening mammogram for malignant neoplasm of breast (principal); Z80.3 Family history of malignant neoplasm of breast

== ENCOUNTER → 2021-02-08 | Outpatient (CLI) | payer MEDICARE, MEDICAID ==
[~2021-02-08] MED LIST changes: -LISI-898 PO; -LISI2.5T2 PO; +LISI2.5T9 PO; +LISI5TAB11 PO
== END ==
LOC: M WHC 12:19
PROVIDERS: ATTEND Family Medicine
DX: R92.8 Other abnormal and inconclusive findings on diagnostic imaging of breast (principal)

== ENCOUNTER → 2021-03-10 | Outpatient (REF) | payer MEDICARE, MEDICAID ==
[~2021-03-10] MED LIST changes: +LISI-898 PO; -LISI5TAB11 PO
== END ==
LOC: M LAB REF 15:45
PROVIDERS: ATTEND Surgery
DX: C44.622 Squamous cell carcinoma of skin of right upper limb, including shoulder (principal); D48.5 Neoplasm of uncertain behavior of skin

== ENCOUNTER 2021-08-04 01:21 | Observation (INO) | payer MEDICARE, MEDICAID ==
[~2021-08-04] VITALS: Ht 165.1 cm; Wt 55.1 kg
[2021-08-04] VITALS (9 sets, daily range): BP systolic 128–160; BP diastolic 60–90
[~2021-08-04 01:21] MED LIST changes: -LISI-898 PO; +LISI5TAB11 PO
[2021-08-04 02:43] LABS: BASO # 0.1 10^3/uL (0.0-0.2); BASO % 0.4 % (0.0-1.0); EOS % 0.3 % (0.0-3.0); HEMATOCRIT 36.7 % (36.0-47.0); HEMOGLOBIN 12.6 g/dl (12.0-15.5); LYMPH # 1.4 10^3/uL (1.5-5.0); LYMPH % 12.1 % (24.0-44.0); MEAN CORPUSCULAR HEMOGLOBIN 32.6 pg (27.0-33.0); MEAN CORPUSCULAR HGB CONC 34.3 g/dl (32.0-36.5); MEAN CORPUSCULAR VOLUME 94.8 fl (80.0-96.0); MONO # 0.9 10^3/uL (0.0-0.8); MONO % 7.2 % (2.0-8.0); NEUTROPHILS # 9.4 10^3/uL (1.5-8.5); NEUTROPHILS % 79.7 % (36.0-66.0); PLATELET COUNT, AUTOMATED 259 10^3/uL (150-450); RED BLOOD COUNT 3.87 10^6/uL (4.00-5.40); WHITE BLOOD COUNT 11.8 10^3/uL (4.0-10.0)
[2021-08-04 03:09] LABS: ALBUMIN 4.3 GM/DL (3.2-5.2); BILIRUBIN,DIRECT 0.2 MG/DL (0.0-0.2)
[2021-08-04 03:11] LABS: CK-MB VALUE MASS < 1.0 NG/ML (<3.6); CPK CREATINE PHOSPHOKINASE 61 U/L (26-192); MB/CK RELATIVE INDEX 1.64 (< OR =4)
[2021-08-04] MEDS ORDERED: ONDANSETRON 4MG/2ML VIAL IV ONE ×2 (03:15→05:05)
[2021-08-04] MEDS ORDERED: KETOROLAC 30 MG/ML 1ML VIAL IV ONE (03:15)
[2021-08-04] MEDS ORDERED: NS 1,000 ML IV ONE (03:25)
[2021-08-04] MEDS ORDERED: CHARCOAL ACTIVATED LIQUID 25 GM/120 ML BTL PO ONE (03:25)
[2021-08-04 03:29] LABS: CALCIUM LEVEL 11.3 MG/DL (8.8-10.2); CREATININE FOR GFR 1.5 MG/DL (0.55-1.30); GLOMERULAR FILTRATION RATE 37.1 (>45); POTASSIUM SERUM 3.3 MEQ/L (3.5-5.1)
[2021-08-04] MEDS ORDERED: MORPHINE 4 MG/ML 1ML VIAL/SYRINGE (J2270) IV PRN ×2 (04:05→09:30)
[2021-08-04] MEDS ORDERED: HYDROMORPHONE HCL 0.5 MG/ 0.5 ML SYRINGE (J1170 PER 1) IV PRN (05:55)
[2021-08-04 06:24] LABS: RSV AMPLIFICATION NEGATIVE (NEGATIVE)
[2021-08-04] MEDS ORDERED: HOME MED LIST COMPLETE! XX SCH (06:45)
[2021-08-04] MEDS ORDERED: CALC600T61 PO (06:45)
[2021-08-04] MEDS ORDERED: SYNT75TA PO (06:45)
[2021-08-04] MEDS: PANTOPRAZOLE 40MG VIAL (C9113 PER 1) IV SCH (08:12)
[2021-08-04] MEDS: KCL 20MEQ in NS 1000ML 1,000 ML IV SCH ×2 (08:13→17:37)
[2021-08-04] MEDS ORDERED: POTASSIUM CHLORIDE 10MEQ SR TABLET PO ONE (09:30)
[2021-08-04] MEDS ORDERED: LevoFLOXacin IV 500 MG in IV 1 EA IV ONE (10:55)
[2021-08-04] MEDS ORDERED: MIDAZOLAM INJ 2MG/2ML VIAL (J2250 PER 1MG) As Ordered ONE (11:16)
[2021-08-04] MEDS ORDERED: fentaNYL 100 MCG/2 ML INJECTION As Ordered ONE (11:16)
[2021-08-04] MEDS ORDERED: propofoL 200 MG/20 ML VIAL As Ordered ONE (11:16)
[2021-08-04] MEDS ORDERED: ONDANSETRON 4MG/2ML VIAL As Ordered ONE (11:17)
[2021-08-04] MEDS ORDERED: LIDOCAINE 2% 100MG/5ML SDV (FOR ANES.) As Ordered ONE (11:17)
[2021-08-04] MEDS ORDERED: dexameTHASONE 4 MG/ML 1ML VIAL (J1100 PER 1MG) As Ordered ONE (11:17)
[2021-08-04] MEDS ORDERED: CONRAY-60 60% 50ML VIAL (Q9961) As Ordered ONE (13:32)
[2021-08-04] MEDS ORDERED: LevoFLOXacin 500MG/100ML IV BAG (J1956 PER 250MG) As Ordered ONE (13:35)
[2021-08-04] MEDS ORDERED: oxyCODONE 5MG TAB PO PRN (15:15)
[2021-08-04] MEDS ORDERED: fentaNYL 100 MCG/2 ML INJECTION IV PRN (15:15)
[2021-08-04] MEDS ORDERED: LR 1,000 ML IV SCH (15:15)
[2021-08-05 02:00] VITALS: BP 142/90
[2021-08-05] MEDS: KCL 20MEQ in NS 1000ML 1,000 ML IV SCH ×2 (03:41→11:19)
[2021-08-05 06:00] VITALS: BP 146/80
[2021-08-05] MEDS ORDERED: LEVOTHYROXINE 37.5MCG PER 1/2TAB (0.0375MG) PO SCH (06:00)
[2021-08-05 06:03] LABS: HEMOGLOBIN 10.8 g/dl (12.0-15.5); MEAN CORPUSCULAR HEMOGLOBIN 32.9 pg (27.0-33.0); MEAN CORPUSCULAR HGB CONC 33.8 g/dl (32.0-36.5); MEAN CORPUSCULAR VOLUME 97.6 fl (80.0-96.0); PLATELET COUNT, AUTOMATED 219 10^3/uL (150-450); RED BLOOD COUNT 3.28 10^6/uL (4.00-5.40); WHITE BLOOD COUNT 5.1 10^3/uL (4.0-10.0)
[2021-08-05 06:33] LABS: CALCIUM LEVEL 8.5 MG/DL (8.8-10.2); CREATININE FOR GFR 1.47 MG/DL (0.55-1.30); POTASSIUM SERUM 4.6 MEQ/L (3.5-5.1)
[2021-08-05 07:11] LABS: FREE T4 1.12 NG/DL (0.76-1.46); THYROID STIMULATING HORMONE 0.523 uIU/ML (0.358-3.740)
[2021-08-05] MEDS ORDERED: MULTIVITAMINS/MINERALS THERAP 1 TAB PO SCH (09:00)
[2021-08-05] MEDS ORDERED: CALCIUM CARBONATE 500 MG CHEW U/D PO PRN (09:40)
[2021-08-05] MEDS ORDERED: CALCITRIOL 0.25 MCG CAP (S0169) PO SCH (09:40)
[2021-08-05] MEDS: PANTOPRAZOLE 40MG VIAL (C9113 PER 1) IV SCH (09:59)
[2021-08-05 10:00] VITALS: BP 132/60
[2021-08-05 14:00] VITALS: BP 133/60
[2021-08-06] MEDS ORDERED: LEVOTHYROXINE 75MCG TABLET (0.075MG) PO SCH (06:00)
== END 2021-08-05 16:15 | disposition home or self-care (01) ==
LOC: M ED 01:21 → M ED INP 01:22 → ENRESERV 10:35 → M MSPAV 16:15
PROVIDERS: ADMIT Internal Medicine; ATTEND Internal Medicine
DX: N13.2 Hydronephrosis with renal and ureteral calculous obstruction (principal); N17.9 Acute kidney failure, unspecified; E87.6 Hypokalemia; E03.9 Hypothyroidism, unspecified; Z79.899 Other long term (current) drug therapy; Z88.0 Allergy status to penicillin; Z88.2 Allergy status to sulfonamides; Z88.8 Allergy status to other drugs, medicaments and biological substances
CPT/HCPCS: 36415; 52332; 52352; 74176; 74420; 80048; 80076; 81001; 82365; 82550; 82553; 83690; 84439; 84443; 84484; 85025; 85027; 87631; 93005; 93041; 94760; 96374; 96375; 96376; 99285; C1769; C1894; C2617; C9113; G0378; J1100; J1885; J1956; J2250; J2405; J3010; J3480; Q9961

== ENCOUNTER 2021-10-04 10:09 | Outpatient (RCR) | payer MEDICARE, MEDICAID ==
[~2021-10-04 10:09] MED LIST changes: +CALC600T61 PO; +SYNT75TA PO
== END 2021-10-08 ==
LOC: M ST 10:09
PROVIDERS: ATTEND Physician Assistant Medical
DX: Z96.3 Presence of artificial larynx (principal); Z90.02 Acquired absence of larynx

== ENCOUNTER 2021-10-13 10:45 | Outpatient (RCR) | payer MEDICARE, MEDICAID | END 2021-11-08 | LOC: M ST 10:45 | PROVIDERS: ATTEND Physician Assistant Medical | DX: Z90.02 Acquired absence of larynx (principal); Z96.3 Presence of artificial larynx ==

== ENCOUNTER 2022-01-01 11:30 | Inpatient (IN) | payer MEDICARE, MEDICAID ==
[~2022-01-01] VITALS: Ht 165.1 cm; Wt 54.8 kg
[2022-01-01 13:00] VITALS: BP 150/95
[2022-01-01] MEDS ORDERED: KETOROLAC 30 MG/ML 1ML VIAL IV PRN (13:55)
[2022-01-01] MEDS ORDERED: ACETAMINOPHEN TAB 650MG DOSE (2X325MG) PO PRN (13:55)
[2022-01-01] MEDS ORDERED: MORPHINE 2 MG/ML 1ML VIAL IV PRN ×2 (13:55→16:10)
[2022-01-01 14:00] VITALS: BP 130/81
[2022-01-01] MEDS ORDERED: ONDANSETRON 4MG 2ML VIAL IV PRN (14:00)
[2022-01-01 14:07] LABS: HEMATOCRIT 36.5 % (36.0-47.0); HEMOGLOBIN 12.6 g/dl (12.0-15.5); MEAN CORPUSCULAR HEMOGLOBIN 32.9 pg (27.0-33.0); MEAN CORPUSCULAR HGB CONC 34.5 g/dl (32.0-36.5); MEAN CORPUSCULAR VOLUME 95.3 fl (80.0-96.0); PLATELET COUNT, AUTOMATED 250 10^3/uL (150-450); RED BLOOD COUNT 3.83 10^6/uL (4.00-5.40); WHITE BLOOD COUNT 5.8 10^3/uL (4.0-10.0)
[2022-01-01 14:27] LABS: CALCIUM LEVEL 8.8 MG/DL (8.8-10.2); CREATININE FOR GFR 1.31 MG/DL (0.55-1.30); GLOMERULAR FILTRATION RATE 43.2 (>45); MAGNESIUM LEVEL 1.6 MG/DL (1.8-2.4)
[2022-01-01] MEDS ORDERED: patient note (14:33)
[2022-01-01] MEDS ORDERED: HOME MED LIST COMPLETE! XX SCH (14:35)
[2022-01-01] MEDS: TAMSULOSIN 0.4 MG CAP PO SCH (15:23)
[2022-01-01] MEDS: HEPARIN SOD (PORCINE) 5000UNITS/ML 1ML VIAL/SYRINGE SQ SCH (15:24)
[2022-01-01] MEDS: cefTRIAXone SOD 1 GM in D5W MINI-BAG PLUS 50 ML IV SCH (15:24)
[2022-01-01] MEDS ORDERED: MAGNESIUM OXIDE 400MG TAB (MAG-OX) PO ONE (17:00)
[2022-01-01 21:00] VITALS: BP 100/60
[2022-01-01] MEDS: NS 1,000 ML IV SCH (21:53)
[2022-01-02] MEDS: HEPARIN SOD (PORCINE) 5000UNITS/ML 1ML VIAL/SYRINGE SQ SCH ×4 (00:16→23:48)
[2022-01-02] MEDS: NS 1,000 ML IV SCH ×2 (00:16→17:40)
[2022-01-02] MEDS ORDERED: LEVOTHYROXINE 75MCG TABLET (0.075MG) PO SCH (06:00)
[2022-01-02 06:12] LABS: HEMATOCRIT 31.2 % (36.0-47.0); MEAN CORPUSCULAR HEMOGLOBIN 32.3 pg (27.0-33.0); MEAN CORPUSCULAR HGB CONC 33.7 g/dl (32.0-36.5); PLATELET COUNT, AUTOMATED 215 10^3/uL (150-450); RED BLOOD COUNT 3.25 10^6/uL (4.00-5.40); WHITE BLOOD COUNT 4.3 10^3/uL (4.0-10.0)
[2022-01-02 06:28] LABS: HEMOGLOBIN 10.5 g/dl (12.0-15.5)
[2022-01-02 06:43] LABS: CALCIUM LEVEL 7.7 MG/DL (8.8-10.2); CREATININE FOR GFR 2.02 MG/DL (0.55-1.30); GLOMERULAR FILTRATION RATE 26.2 (>45); MAGNESIUM LEVEL 1.9 MG/DL (1.8-2.4); PHOSPHORUS LEVEL 4.4 MG/DL (2.5-4.9); POTASSIUM SERUM 3.8 MEQ/L (3.5-5.1)
[2022-01-02 06:57] VITALS: BP 112/68
[2022-01-02] MEDS: TAMSULOSIN 0.4 MG CAP PO SCH (08:59)
[2022-01-02] MEDS: CALCITRIOL 0.25 MCG CAP (S0169) PO SCH ×2 (09:00→18:35)
[2022-01-02] MEDS: cefTRIAXone SOD 1 GM in D5W MINI-BAG PLUS 50 ML IV SCH (14:05)
[2022-01-02] MEDS ORDERED: LIDOCAINE 2% 100MG/5ML SDV (FOR ANES.) As Ordered ONE (15:32)
[2022-01-02] MEDS ORDERED: fentaNYL 100 MCG/2 ML INJECTION As Ordered ONE (15:32)
[2022-01-02] MEDS ORDERED: propofoL 200 MG/20 ML VIAL As Ordered ONE (15:32)
[2022-01-02] MEDS ORDERED: MIDAZOLAM INJ 2MG/2ML VIAL (J2250 PER 1MG) As Ordered ONE (15:32)
[2022-01-02] MEDS ORDERED: ISOVUE-300 61% 50ML VIAL As Ordered ONE (15:36)
[2022-01-02 16:52] VITALS: BP 152/90
[2022-01-02 18:00] VITALS: BP 142/78
[2022-01-02 18:22] LABS: APPEARANCE, URINE CLEAR (CLEAR); BACTERIA, URINE AUTO 1+ (NEGATIVE); BILIRUBIN, URINE AUTO NEGATIVE (NEGATIVE); BLOOD, URINE BLOOD 3+ (NEGATIVE); COLOR, URINE STRAW (YELLOW); GLUCOSE, URINE (UA) AUTO NEGATIVE (NEGATIVE); KETONE, URINE AUTO TRACE mg/dL (NEGATIVE); LEUKOCYTE ESTERASE, URINE AUTO NEGATIVE (NEGATIVE); MUCUS, URINE SMALL (NEGATIVE); NITRITE, URINE AUTO NEGATIVE (NEGATIVE); PROTEIN, URINE AUTO NEGATIVE (NEGATIVE); RBC, URINE AUTO TNTC /HPF (0-3); SQUAMOUS EPITHELIAL CELL UR AU 1 /HPF (0-6); UROBILINOGEN, URINE AUTO 0.2 mg/dL (0.0-2.0); WBC, URINE AUTO 3 /HPF (0-3)
[2022-01-02] MEDS: CALCIUM CARBONATE 500 MG CHEW U/D PO PRN (18:35)
[2022-01-02 18:38] LABS: CALCIUM LEVEL 7.5 MG/DL (8.8-10.2); CREATININE FOR GFR 1.55 MG/DL (0.55-1.30); GLOMERULAR FILTRATION RATE 35.6 (>45); POTASSIUM SERUM 3.7 MEQ/L (3.5-5.1)
[2022-01-02 20:56] VITALS: BP 140/84
[2022-01-03 04:00] VITALS: BP 115/80
[2022-01-03] MEDS: NS 1,000 ML IV SCH (04:18)
[2022-01-03] MEDS ORDERED: LEVOTHYROXINE 37.5MCG PER 1/2TAB (0.0375MG) PO SCH (06:00)
[2022-01-03 07:46] LABS: MEAN CORPUSCULAR HEMOGLOBIN 33.2 pg (27.0-33.0); MEAN CORPUSCULAR HGB CONC 34.4 g/dl (32.0-36.5); MEAN CORPUSCULAR VOLUME 96.7 fl (80.0-96.0); PLATELET COUNT, AUTOMATED 216 10^3/uL (150-450); RED BLOOD COUNT 3.31 10^6/uL (4.00-5.40); WHITE BLOOD COUNT 4.5 10^3/uL (4.0-10.0)
[2022-01-03 08:25] LABS: CALCIUM LEVEL 7.7 MG/DL (8.8-10.2); CREATININE FOR GFR 1.18 MG/DL (0.55-1.30); GLOMERULAR FILTRATION RATE 48.8 (>45); POTASSIUM SERUM 3.9 MEQ/L (3.5-5.1)
[2022-01-03] MEDS: CALCITRIOL 0.25 MCG CAP (S0169) PO SCH (08:43)
[2022-01-03] MEDS: TAMSULOSIN 0.4 MG CAP PO SCH (08:43)
[2022-01-03] MEDS: HEPARIN SOD (PORCINE) 5000UNITS/ML 1ML VIAL/SYRINGE SQ SCH (08:44)
[2022-01-03] MEDS: CALCIUM CARBONATE 500 MG CHEW U/D PO PRN (08:51)
[2022-01-03] MEDS ORDERED: CIPR500T39 PO (09:54)
[2022-01-03] MEDS ORDERED: PYRI1TAB5 PO (09:57)
== END 2022-01-03 13:26 | disposition home or self-care (01) | DRG 661 ==
LOC: M MSPAV 11:30
PROVIDERS: ADMIT Internal Medicine; ATTEND Internal Medicine
PROC: 0T768DZ Dilation of Right Ureter with Intraluminal Device, Via Natural or Artificial Opening Endoscopic (ICD-10-PCS; principal; 2022-01-02 07:31)
DX: N13.2 Hydronephrosis with renal and ureteral calculous obstruction (principal); E03.9 Hypothyroidism, unspecified; N17.9 Acute kidney failure, unspecified; Z88.0 Allergy status to penicillin; Z88.2 Allergy status to sulfonamides; Z88.8 Allergy status to other drugs, medicaments and biological substances; Z79.899 Other long term (current) drug therapy; Z79.890 Hormone replacement therapy; Z92.3 Personal history of irradiation; Z85.038 Personal history of other malignant neoplasm of large intestine; Z85.43 Personal history of malignant neoplasm of ovary; Z85.89 Personal history of malignant neoplasm of other organs and systems

== ENCOUNTER → 2022-03-23 | Outpatient (CLI) | payer MEDICARE, MEDICAID ==
[~2022-03-23] MED LIST changes: +CIPR500T39 PO; +PYRI1TAB5 PO; +patient note
== END ==
LOC: M WHC 08:35
PROVIDERS: ATTEND Family Medicine
DX: Z12.31 Encounter for screening mammogram for malignant neoplasm of breast (principal)

== ENCOUNTER → 2022-05-19 | Outpatient (CLI) | payer MEDICARE, MEDICAID ==
[~2022-05-19] MED LIST changes: +E-Z-GAS II EFFERVESCENT PACKET (SODIUM BICARB./CITRIC ACID/SIMETHICONE) As Ordered ONE; +E-Z-HD 98% w/w 340GM SUSP BTL As Ordered ONE; +E-Z-PAQUE 96% w/w SUSP 176GM BTL As Ordered ONE
== END ==
LOC: M RAD 08:51
PROVIDERS: ATTEND Surgery
DX: R10.13 Epigastric pain (principal)

== ENCOUNTER 2022-06-28 08:00 | Day surgery (SDC) | payer MEDICARE, MEDICAID ==
[~2022-06-28] VITALS: Ht 165.1 cm; Wt 57.5 kg
[~2022-06-28 08:00] MED LIST changes: -E-Z-GAS II EFFERVESCENT PACKET (SODIUM BICARB./CITRIC ACID/SIMETHICONE) As Ordered ONE; -E-Z-HD 98% w/w 340GM SUSP BTL As Ordered ONE; -E-Z-PAQUE 96% w/w SUSP 176GM BTL As Ordered ONE; +NS 1,000 ML IV ONE
[2022-06-28] MEDS ORDERED: propofoL 500 MG/50 ML VIAL As Ordered ONE (08:41)
[2022-06-28] MEDS ORDERED: LIDOCAINE 2% 100MG/5ML SDV (FOR ANES.) As Ordered ONE (08:41)
[2022-06-28] MEDS ORDERED: fentaNYL 100 MCG/2 ML INJECTION As Ordered ONE (08:41)
[2022-06-28 09:30] VITALS: BP 135/90
== END 2022-06-28 09:59 | disposition home or self-care (01) ==
LOC: M OPP 08:00
PROVIDERS: ATTEND Surgery
DX: Z12.11 Encounter for screening for malignant neoplasm of colon (principal); Z85.038 Personal history of other malignant neoplasm of large intestine; K64.0 First degree hemorrhoids; R10.13 Epigastric pain; Z79.890 Hormone replacement therapy; Z79.899 Other long term (current) drug therapy; Z88.0 Allergy status to penicillin; Z88.2 Allergy status to sulfonamides; Z88.8 Allergy status to other drugs, medicaments and biological substances; I10 Essential (primary) hypertension; E16.2 Hypoglycemia, unspecified; E03.9 Hypothyroidism, unspecified; Z86.2 Personal history of diseases of the blood and blood-forming organs and certain disorders involving the immune mechanism; Z85.42 Personal history of malignant neoplasm of other parts of uterus; Z90.49 Acquired absence of other specified parts of digestive tract
CPT/HCPCS: 43235; G0105; J3010

== ENCOUNTER → 2022-08-02 | Outpatient (CLI) | payer MEDICARE, MEDICAID ==
[~2022-08-02] MED LIST changes: -NS 1,000 ML IV ONE
== END ==
LOC: M RAD 08:08
PROVIDERS: ATTEND Physician Assistant
DX: K80.20 Calculus of gallbladder without cholecystitis without obstruction (principal); R10.13 Epigastric pain
CPT/HCPCS: 78227; A9537

== ENCOUNTER 2022-11-10 11:05 | Outpatient (RCR) | payer MEDICARE, MEDICAID | END 2022-12-08 | LOC: M ST 11:05 | PROVIDERS: ATTEND Otolaryngology | DX: Z90.02 Acquired absence of larynx (principal); Z96.3 Presence of artificial larynx ==

== ENCOUNTER → 2023-04-06 | Outpatient (CLI) | payer MEDICARE, MEDICAID | LOC: M WHC 09:16 | PROVIDERS: ATTEND Family Medicine | DX: Z12.31 Encounter for screening mammogram for malignant neoplasm of breast (principal) ==

== ENCOUNTER 2024-01-30 12:54 | Outpatient (RCR) | payer MEDICARE, MEDICAID | END 2024-02-09 | LOC: M ST 12:54 | PROVIDERS: ATTEND Otolaryngology | DX: Z96.3 Presence of artificial larynx (principal) ==

== ENCOUNTER → 2024-05-02 | Outpatient (CLI) | payer MEDICARE, MEDICAID | LOC: M WHC 11:28 | PROVIDERS: ATTEND Physician Assistant | DX: Z12.31 Encounter for screening mammogram for malignant neoplasm of breast (principal); R92.333 Mammographic heterogeneous density, bilateral breasts ==

== ENCOUNTER 2025-05-22 08:39 | Emergency (ER) | payer MEDICARE, MEDICAID ==
[~2025-05-22] VITALS: Ht 165.1 cm; Wt 57.3 kg
[2025-05-22 09:13] LABS: BASO # 0.1 10^3/uL (0.0-0.2); BASO % 0.9 % (0.0-1.0); EOS # 0.2 10^3/uL (0.0-0.5); EOS % 2.6 % (0.0-3.0); LYMPH # 2.1 10^3/uL (1.5-5.0); LYMPH % 35.6 % (24.0-44.0); MONO # 0.5 10^3/uL (0.0-0.8); MONO % 9.2 % (2.0-8.0); NEUTROPHILS # 3.0 10^3/uL (1.5-8.5); NEUTROPHILS % 51.5 % (36.0-66.0); PLATELET COUNT, AUTOMATED 317 10^3/uL (150-450)
[2025-05-22 09:39] LABS: ALT/SGPT < 9 U/L (7.0-40); AST/SGOT 25 U/L (<34); CALCIUM LEVEL 8.8 MG/DL (8.3-10.6); CARBON DIOXIDE LEVEL 25 MMOL/L (20-31); CHLORIDE LEVEL 103 MMOL/L (98-107); CREATININE FOR GFR 1.36 MG/DL (0.55-1.30); GLOMERULAR FILTRATION RATE 42.2 (>45); POTASSIUM SERUM 3.8 MMOL/L (3.5-5.1); SODIUM LEVEL 141 MMOL/L (136-145)
[2025-05-22] MEDS ORDERED: ISOVUE-370 76% 100 ML VIAL As Ordered ONE (09:49)
[2025-05-22] MEDS: PERCOCET 5MG/325MG TAB PO ONE (09:49)
[2025-05-22] MEDS ORDERED: PERC5TAB12 PO (11:05)
[2025-05-22 11:15] VITALS: BP 147/84; TEMP 97.4; O2SAT 99
== END 2025-05-22 11:34 | disposition home or self-care (01) ==
LOC: M ED 08:39
DX: K11.20 Sialoadenitis, unspecified (principal); I10 Essential (primary) hypertension; I44.4 Left anterior fascicular block; N18.9 Chronic kidney disease, unspecified; Z85.038 Personal history of other malignant neoplasm of large intestine; Z85.44 Personal history of malignant neoplasm of other female genital organs; Z87.891 Personal history of nicotine dependence; Z88.0 Allergy status to penicillin; Z88.8 Allergy status to other drugs, medicaments and biological substances; Z88.2 Allergy status to sulfonamides; Z79.899 Other long term (current) drug therapy
CPT/HCPCS: 36415; 70491; 80053; 84484; 85025; 93005; 99284; Q9967